=== PATIENT | female | born 1995 | race African-American/Black ===

== ENCOUNTER 2016-11-15 10:24 | Emergency (ER) | payer OTHER ==
[~2016-11-15] VITALS: Ht 165.1 cm; Wt 66.0 kg
[2016-11-15 10:42] VITALS: BP 113/69
== END 2016-11-15 11:27 | disposition home or self-care (01) ==
LOC: EMS 10:26
DX: L03.012 Cellulitis of left finger (principal)
CPT/HCPCS: 99281; 99283

== ENCOUNTER 2018-01-13 00:51 | Emergency (ER) | payer OTHER ==
[~2018-01-13] VITALS: Ht 165.1 cm; Wt 72.7 kg
[2018-01-13 01:04] VITALS: BP 134/82
[2018-01-13] MEDS ORDERED: IBUPROFEN 400 MG TABLET PO ONE (02:00)
== END 2018-01-13 02:07 | disposition home or self-care (01) ==
LOC: EMS 00:52
DX: S13.4XXA Sprain of ligaments of cervical spine, initial encounter (principal); S23.9XXA Sprain of unspecified parts of thorax, initial encounter; V43.52XA Car driver injured in collision with other type car in traffic accident, initial encounter; Y93.89 Activity, other specified; Y92.89 Other specified places as the place of occurrence of the external cause; Y99.8 Other external cause status
CPT/HCPCS: 99282

== ENCOUNTER 2018-11-04 01:54 | Emergency (ER) | payer OTHER ==
[~2018-11-04] VITALS: Ht 165.1 cm; Wt 63.6 kg
[2018-11-04 01:57] VITALS: BP 140/95
== END 2018-11-04 02:45 | disposition home or self-care (01) ==
LOC: EMS 02:01
DX: H66.92 Otitis media, unspecified, left ear (principal); J06.9 Acute upper respiratory infection, unspecified

== ENCOUNTER 2018-11-10 15:55 | Emergency (ER) | payer OTHER ==
[~2018-11-10] VITALS: Ht 160 cm; Wt 63.0 kg
[2018-11-10 16:50] LABS: APPEARANCE,URINE CLOUDY (CLEAR); BILIRUBIN,URINE NEGATIVE (NEGATIVE); GLUCOSE, URINE (UA) NEGATIVE (NEGATIVE); KETONES,URINE NEGATIVE (NEGATIVE); LEUKOCYTE ESTERASE ,URINE LARGE (NEGATIVE); NITRATE,URINE NEGATIVE (NEGATIVE); OCCULT BLOOD,URINE TRACE (NEGATIVE); PH,URINE 5.5 (5.0-8.0); PROTEIN,URINE NEGATIVE (NEGATIVE); UROBILINOGEN,URINE 0.2 mg/dL (<=1.0)
[2018-11-10 17:18] LABS: BACTERIA,URINE Moderate /HPF (None Seen); RBC,URINE 0-2 /HPF (0-2); SQUAMOUS EPITHELIAL CELL,UR Moderate /LPF (None Seen)
[2018-11-10] MEDS ORDERED: AZITHROMYCIN 250 MG TABLET PO ONE (17:45)
[2018-11-10] MEDS ORDERED: FLUCONAZOLE 150 MG TABLET PO ONE (17:45)
[2018-11-10] MEDS ORDERED: LIDOCAINE/PF 1% 2 ML VIAL IM ONE (17:45)
[2018-11-10] MEDS ORDERED: ACETAMINOPHEN 325 MG TABLET PO ONE (17:45)
[2018-11-10] MEDS ORDERED: CefTRIAXone SODIUM 1 GM/VIAL IM ONE (17:45)
[2018-11-10 18:15] VITALS: BP 114/86
== END 2018-11-10 18:19 | disposition home or self-care (01) ==
LOC: EMS 15:55
DX: N39.0 Urinary tract infection, site not specified (principal); B37.3 Candidiasis of vulva and vagina
CPT/HCPCS: 81001; 84703; 87086; 96372; 99284; J0696; J3490

== ENCOUNTER 2019-01-17 12:23 | Emergency (ER) | payer OTHER ==
[~2019-01-17] VITALS: Ht 165.1 cm; Wt 65.9 kg
[2019-01-17] MEDS ORDERED: ACET-2247 PO (12:30)
[2019-01-17 13:33] VITALS: BP 122/65
== END 2019-01-17 13:34 | disposition home or self-care (01) ==
LOC: EMS 12:23
DX: L02.422 Furuncle of left axilla (principal); L02.421 Furuncle of right axilla; L02.412 Cutaneous abscess of left axilla; L02.411 Cutaneous abscess of right axilla; N76.4 Abscess of vulva

== ENCOUNTER 2019-05-31 11:04 | Emergency (ER) | payer OTHER ==
[~2019-05-31] VITALS: Ht 165.1 cm; Wt 65.9 kg
[~2019-05-31 11:04] MED LIST: ACET-2247 PO
[2019-05-31 11:32] VITALS: BP 119/79
== END 2019-05-31 12:30 | disposition left against medical advice (07) ==
LOC: EMS 11:05
DX: L02.424 Furuncle of left upper limb (principal)

== ENCOUNTER 2019-06-02 02:55 | Emergency (ER) | payer OTHER ==
[~2019-06-02] VITALS: Ht 165.1 cm; Wt 65.9 kg
[2019-06-02 04:30] VITALS: BP 115/77
== END 2019-06-02 05:09 | disposition home or self-care (01) ==
LOC: EMS 02:57
DX: L02.412 Cutaneous abscess of left axilla (principal); N61.1 Abscess of the breast and nipple

== ENCOUNTER 2019-09-09 12:26 | Emergency (ER) | payer OTHER ==
[~2019-09-09] VITALS: Ht 165.1 cm; Wt 68.2 kg
[2019-09-09 12:33] VITALS: BP 113/66
== END 2019-09-09 14:59 | disposition home or self-care (01) ==
LOC: EMS 12:27
DX: L73.2 Hidradenitis suppurativa (principal); L02.413 Cutaneous abscess of right upper limb

== ENCOUNTER 2020-12-11 04:02 | Emergency (ER) | payer OTHER ==
[~2020-12-11] VITALS: Ht 165.1 cm; Wt 68.2 kg
[2020-12-11 04:15] VITALS: BP 122/71
[2020-12-11 04:28] LABS: BASOPHILS % (AUTO) 0.8 % (0.0-2.0); EOSINOPHILS % (AUTO) 0.4 % (1.0-6.0); HEMATOCRIT 41.2 % (36-46); HEMOGLOBIN 13.8 g/dL (12.0-16.0); LYMPHOCYTES # (AUTO) 1.4 K/uL (1.0-4.8); LYMPHOCYTES % (AUTO) 18.4 % (22.0-44.0); MEAN CORPUSCULAR HEMOGLOBIN 29.6 pg (26.0-34.0); MEAN CORPUSCULAR HGB CONC 33.5 G/dL (31.0-37.0); MEAN CORPUSCULAR VOLUME 88 fL (80-100); MONOCYTES # (AUTO) 0.9 K/uL (0.1-1.0); MONOCYTES % (AUTO) 12.4 % (2.0-9.0); PLATELET COUNT (AUTO) 316 K/uL (150-450); RED BLOOD CELL COUNT(AUTO) 4.66 MIL/uL (4.00-5.20); RED CELL DISTRIBUTION WIDTH 13.5 % (11.5-14.5)
[2020-12-11] MEDS ORDERED: PERTUSS(ACELL),DIPH,TET VAC/PF 0.5 ML SYRINGE IM. ONE (04:30)
[2020-12-11 04:35] LABS: ANION GAP 15 mmol/L (8-16); CALCIUM, TOTAL 8.5 mg/dL (8.8-10.5); CARBON DIOXIDE 25 mmol/L (22-29); CHLORIDE 103 mmol/L (98-107); CREATININE 0.94 mg/dL (0.60-1.30); GLOMERULAR FILTR. RATE CALC > 60 mL/min (>60); GLUCOSE,RANDOM 108 mg/dL (70-110); POTASSIUM 3.4 mmol/L (3.5-5.1); SODIUM SERUM 143 mmol/L (136-145); UREA NITROGEN, BLOOD 9 mg/dL (7-18)
[2020-12-11 04:46] LABS: ALANINE AMINOTRANSFERASE 20 U/L (12-78); ALKALINE PHOSPHATASE 72 U/L (46-116); ASPARTATE AMINOTRANSFERASE 16 U/L (15-37); BILIRUBIN,TOTAL 0.3 mg/dL (0.1-1.0); HCG,QUANTITATIVE < 1 mIU/mL (0-6); TOTAL PROTEIN, SERUM 8.3 g/dL (6.4-8.2)
[2020-12-11 04:49] LABS: HIV RAPID SCREEN NON-REACTIVE (NONREACTIVE)
[2020-12-11] MEDS ORDERED: CefTRIAXone SODIUM 500 MG in DEXTROSE 5%-WATER 50 ML IV ONE (05:00)
[2020-12-11] MEDS ORDERED: EMTRICITABINE/TENOFOVIR 200-300 MG TABLET PO ONE (05:00)
[2020-12-11] MEDS ORDERED: RALTEGRAVIR 400 MG TABLET PO ONE (05:00)
[2020-12-11] MEDS ORDERED: DOXYCYCLINE HYCLATE 100 MG TABLET PO ONE (05:00)
[2020-12-11] MEDS ORDERED: MetroNIDAZOLE 500 MG TABLET PO ONE (05:00)
[2020-12-11 05:04] LABS: RAPID PLASMA REAGIN NONREACTIVE (NONREACTIVE)
== END 2020-12-11 10:21 | disposition left against medical advice (07) ==
LOC: EMS 04:07
DX: T76.21XA Adult sexual abuse, suspected, initial encounter (principal); R10.2 Pelvic and perineal pain; X58.XXXA Exposure to other specified factors, initial encounter
CPT/HCPCS: 80053; 80074; 84702; 85025; 86592; 90471; 90715; 99283; J0696; J7060

== ENCOUNTER 2021-01-06 04:28 | Emergency (ER) | payer OTHER ==
[~2021-01-06] VITALS: Ht 165.1 cm; Wt 68.2 kg
[2021-01-06 06:03] VITALS: BP 132/92
[2021-01-06] MEDS ORDERED: FLUORESCEIN SODIUM 1 MG STRIP OS ONE (07:00)
[2021-01-06] MEDS ORDERED: PROPARACAINE HCL 0.5% 15 ML OPHTHALMIC SOLUTION OS ONE (07:00)
== END 2021-01-06 07:25 | disposition home or self-care (01) ==
LOC: EMS 04:28
DX: H20.9 Unspecified iridocyclitis (principal); F17.200 Nicotine dependence, unspecified, uncomplicated
CPT/HCPCS: 99283

== ENCOUNTER 2022-02-10 11:54 | Emergency (ER) | payer OTHER ==
[~2022-02-10] VITALS: Ht 167.6 cm; Wt 81.0 kg
[2022-02-10 13:06] LABS: BASOPHILS % (AUTO) 0.9 % (0.0-2.0); EOSINOPHILS % (AUTO) 0.9 % (1.0-6.0); HEMATOCRIT 40.5 % (36-46); HEMOGLOBIN 13.6 g/dL (12.0-16.0); LYMPHOCYTES # (AUTO) 1.4 K/uL (1.0-4.8); LYMPHOCYTES % (AUTO) 15.7 % (22.0-44.0); MEAN CORPUSCULAR HGB CONC 33.6 G/dL (31.0-37.0); MEAN CORPUSCULAR VOLUME 86 fL (80-100); MONOCYTES # (AUTO) 0.9 K/uL (0.1-1.0); MONOCYTES % (AUTO) 10.7 % (2.0-9.0); NEUTROPHILS # (AUTO) 6.3 K/uL (1.8-7.7); NEUTROPHILS % (AUTO) 71.8 % (40.0-70.0); PLATELET COUNT (AUTO) 361 K/uL (150-450); RED CELL DISTRIBUTION WIDTH 14.2 % (11.5-14.5)
[2022-02-10 13:20] LABS: ANION GAP 10 mmol/L (8-16); CALCIUM, TOTAL 8.8 mg/dL (8.8-10.5); CARBON DIOXIDE 25 mmol/L (22-29); CHLORIDE 103 mmol/L (98-107); CREATININE 0.85 mg/dL (0.60-1.30); GLOMERULAR FILTR. RATE CALC > 60 mL/min (>60); GLUCOSE,RANDOM 82 mg/dL (70-110); SODIUM SERUM 138 mmol/L (136-145); UREA NITROGEN, BLOOD 7 mg/dL (7-18)
[2022-02-10 13:31] LABS: ALANINE AMINOTRANSFERASE 34 U/L (12-78); ALBUMIN 3.6 g/dL (3.4-5.0); ALKALINE PHOSPHATASE 81 U/L (46-116); ASPARTATE AMINOTRANSFERASE 21 U/L (15-37); BILIRUBIN,TOTAL 0.3 mg/dL (0.1-1.0); HCG,QUANTITATIVE < 1 mIU/mL (0-6); TOTAL PROTEIN, SERUM 8.5 g/dL (6.4-8.2)
[2022-02-10] MEDS ORDERED: PROPARACAINE HCL 0.5% 15 ML OPHTHALMIC SOLUTION OD ONE (14:15)
[2022-02-10] MEDS ORDERED: FLUORESCEIN SODIUM 1 MG STRIP OD ONE ×2 (14:15)
[2022-02-10 15:00] LABS: APPEARANCE,URINE HAZY (CLEAR); BILIRUBIN,URINE NEGATIVE (NEGATIVE); GLUCOSE, URINE (UA) NEGATIVE (NEGATIVE); KETONES,URINE NEGATIVE (NEGATIVE); LEUKOCYTE ESTERASE ,URINE NEGATIVE (NEGATIVE); NITRATE,URINE NEGATIVE (NEGATIVE); OCCULT BLOOD,URINE NEGATIVE (NEGATIVE); PROTEIN,URINE NEGATIVE (NEGATIVE); UROBILINOGEN,URINE <=1.0 mg/dL (<=1.0)
[2022-02-10 17:00] VITALS: BP 123/76
[2022-02-10] MEDS ORDERED: KETOROLAC TROMETHAMINE 30 MG/ML VIAL IM ONE (17:15)
[2022-02-10] MEDS ORDERED: OFLOXACIN 0.3% 5 ML OPHTHALMIC SOLUTION OD ONE (17:15)
[2022-02-10] MEDS ORDERED: ACETAMINOPHEN 500 MG TABLET PO ONE (17:15)
== END 2022-02-10 18:04 | disposition home or self-care (01) ==
LOC: EMS 11:56
DX: H20.9 Unspecified iridocyclitis (principal); R55 Syncope and collapse; W18.39XA Other fall on same level, initial encounter; Y93.89 Activity, other specified; Y92.89 Other specified places as the place of occurrence of the external cause; Y99.8 Other external cause status
CPT/HCPCS: 99285; 70450; 80053; 81003; 84702; 85025; 36415; 70486; 93005; 96372; 99173; J1885

== ENCOUNTER 2022-08-12 11:04 | Emergency (ER) | payer OTHER ==
[~2022-08-12] VITALS: Ht 172.7 cm; Wt 81.8 kg
[2022-08-12 12:58] LABS: BASOPHILS % (AUTO) 0.7 % (0.0-2.0); EOSINOPHILS % (AUTO) 1.2 % (1.0-6.0); HEMATOCRIT 42.5 % (36-46); HEMOGLOBIN 13.8 g/dL (12.0-16.0); LYMPHOCYTES % (AUTO) 14.8 % (22.0-44.0); MEAN CORPUSCULAR HEMOGLOBIN 28.6 pg (26.0-34.0); MEAN CORPUSCULAR HGB CONC 32.4 G/dL (31.0-37.0); MEAN CORPUSCULAR VOLUME 88 fL (80-100); MONOCYTES # (AUTO) 0.9 K/uL (0.1-1.0); MONOCYTES % (AUTO) 13.9 % (2.0-9.0); NEUTROPHILS # (AUTO) 4.5 K/uL (1.8-7.7); NEUTROPHILS % (AUTO) 69.4 % (40.0-70.0); PLATELET COUNT (AUTO) 304 K/uL (150-450); RED BLOOD CELL COUNT(AUTO) 4.83 MIL/uL (4.00-5.20); RED CELL DISTRIBUTION WIDTH 15.1 % (11.5-14.5)
[2022-08-12 13:27] LABS: ANION GAP 7 mmol/L (8-16); CALCIUM, TOTAL 8.5 mg/dL (8.8-10.5); CARBON DIOXIDE 27 mmol/L (22-29); CHLORIDE 103 mmol/L (98-107); GLUCOSE,RANDOM 90 mg/dL (70-110); POTASSIUM 3.6 mmol/L (3.5-5.1); SODIUM SERUM 137 mmol/L (136-145); UREA NITROGEN, BLOOD 8 mg/dL (7-18)
[2022-08-12 13:29] LABS: GLOMERULAR FILTR. RATE CALC > 60 mL/min (>60)
[2022-08-12 13:34] LABS: ALANINE AMINOTRANSFERASE 23 U/L (12-78); ALBUMIN 3.4 g/dL (3.4-5.0); ALKALINE PHOSPHATASE 67 U/L (46-116); ASPARTATE AMINOTRANSFERASE 17 U/L (15-37); BILIRUBIN,TOTAL 0.9 mg/dL (0.1-1.0)
[2022-08-12 13:54] LABS: HCG,QUANTITATIVE 209 mIU/mL (0-6)
[2022-08-12 14:15] VITALS: BP 118/69
== END 2022-08-12 14:36 | disposition home or self-care (01) ==
LOC: EMS 11:13
DX: O02.1 Missed abortion (principal)
CPT/HCPCS: 76801; 76817; 80053; 84702; 85025; 86901; 99284